=== PATIENT | female | born 1945 | race Caucasian/White ===

== ENCOUNTER → 2017-03-01 | Outpatient (CLI) | payer MEDICARE, BC | LOC: PT 13:19 | DX: M17.11 Unilateral primary osteoarthritis, right knee (principal) ==

== ENCOUNTER 2017-05-05 11:00 | Outpatient (RCR) | payer MEDICARE, BC | END 2017-05-05 11:58 | disposition home or self-care (01) | LOC: PT 11:00 | DX: M17.11 Unilateral primary osteoarthritis, right knee (principal) | CPT/HCPCS: G8978-GP; G8979-GP ==

== ENCOUNTER 2017-10-04 11:00 | Outpatient (RCR) | payer MEDICARE, BC | END 2017-12-09 | disposition home or self-care (01) | LOC: PT | DX: M51.16 Intervertebral disc disorders with radiculopathy, lumbar region (principal); Z96.651 Presence of right artificial knee joint | CPT/HCPCS: G8978-GP; G8979-GP ==

== ENCOUNTER → 2020-07-05 | Outpatient (CLI) | payer MEDICARE, BC ==
[2020-07-12 14:39] LABS: HEMATOCRIT 37.9 % (37.0-47.0); HEMOGLOBIN 11.8 g/dL (12.5-16.0); RED BLOOD COUNT 4.04 M/mm3 (4.10-5.30); RED CELL DISTRIBUTION WIDTH 13.8 % (11.5-14.5); WHITE BLOOD COUNT 6.2 K/mm3 (4.8-10.8)
== END ==
LOC: LAB 15:18
PROVIDERS: Orthopaedic Surgery
DX: M25.561 Pain in right knee (principal); Z96.651 Presence of right artificial knee joint

== ENCOUNTER 2020-08-12 13:03 | Outpatient (RCR) | payer MEDICARE, BC | END 2020-09-25 16:30 | disposition home or self-care (01) | LOC: PT 13:03 | DX: M70.51 Other bursitis of knee, right knee (principal); Z96.651 Presence of right artificial knee joint ==

== ENCOUNTER 2021-01-06 10:52 | Outpatient (RCR) | payer MEDICARE, BC | END 2021-04-06 | disposition still patient (30) | LOC: PT | DX: Z01.812 Encounter for preprocedural laboratory examination (principal) ==

== ENCOUNTER 2022-10-13 14:58 | Outpatient (RCR) | payer MEDICARE, BC | END 2022-10-23 | disposition home or self-care (01) | LOC: PT | DX: M75.81 Other shoulder lesions, right shoulder (principal); M75.21 Bicipital tendinitis, right shoulder ==

== ENCOUNTER 2024-03-29 13:03 | Outpatient (RCR) | payer MEDICARE, BC | END 2024-04-24 | disposition home or self-care (01) | LOC: PT | DX: M25.672 Stiffness of left ankle, not elsewhere classified (principal) ==

== ENCOUNTER 2024-04-25 08:00 | Outpatient (RCR) | payer MEDICARE, BC | END 2024-05-25 | disposition home or self-care (01) | LOC: PT | DX: M25.672 Stiffness of left ankle, not elsewhere classified (principal) ==